=== PATIENT | male | born 1950 | race Caucasian/White ===

== ENCOUNTER 2021-09-19 20:38 | Emergency (ER) | payer MEDICARE ==
[~2021-09-19] VITALS: Ht 185.4 cm; Wt 102.1 kg
--- NOTE | 2021-09-19 20:50 | NUR ---
NO BEDS AVAILABLE, BIB RA. PATIENT WAITING OUTSIDE IN THE RA TRUCK DUE TO + COVID.
--- NOTE | 2021-09-19 21:45 | NUR ---
BED AVAILABLE IN ROOM 5A. PLACED PATIENT IN ROOM.
[2021-09-19 22:00] LABS: HEMATOCRIT 42.3 % (36.7-47.1); MEAN CORPUSCULAR VOLUME 92.4 fL (73.0-96.2); PLATELET COUNT (AUTO) 280 K/uL (152-348)
--- NOTE | 2021-09-19 23:20 | NUR ---
Pt in room 5A eating snacks he brought with him. Pts VSS, PE WNL. Pt has good color and appearance. No s/sx of distress present.
--- NOTE | 2021-09-19 23:45 | NUR ---
Pt in Room 5A being worked up for CP. Pt placed on monitor, VSS, PE WNL. Pt denies any dizziness, n/v, sob, or discomfort. No complaints of pain at this time. I suspect that the pt is not really having CP but just wanted to get out the cold weather for a bit, rest up and have something to eat. Pt is resting comfortably with audible snoring. No s/sx of CP or discomfort of any kind noted.
--- NOTE | 2021-09-20 00:05 | NUR ---
Pt has made a huge mess in room 5a. He has thrown food wrappers and banana peels all over the room and has spilled urine on the floor.
[2021-09-20] MEDS ORDERED: IV NORMAL SALINE 250 ML IV ONE (00:17)
[2021-09-20] MEDS ORDERED: SWABABLE VALVE TRANSFER SET EA MC ONE (00:17)
[2021-09-20] MEDS ORDERED: IOHEXOL 350 100 ML INFUS..BTL ONE (00:17)
[2021-09-20 00:39] LABS: BILIRUBIN,DIRECT 0.1 mg/dL (0.0-0.2); BILIRUBIN,TOTAL 0.5 mg/dL (0.2-1.0); CREATININE 0.9 mg/dL (0.6-1.3); POTASSIUM 4.4 mmol/L (3.5-5.1); TOTAL PROTEIN, SERUM 8.1 g/dL (6.4-8.2)
--- NOTE | 2021-09-20 04:50 | NUR ---
Pt was caught trying to steal a wheelchair and elope thru the emergency exit at the backside of ED between ED and Lab by the campus security officer. Pt was brought back into the ED and was told that if he wants to leave he has to sign out AMA and leave the WC. Pt complied and signed out AMA, the campus security officer then escorted pt out of the dept and made sure to bring back the wc. Pt had good color and appearance, VSS, no complaints of pain or discomfort or sob or nausea. No s/sx of distress present.
[2021-09-20 06:25] VITALS: BP 118/82
== END 2021-09-20 04:55 | disposition left against medical advice (07) ==
LOC: ER 20:46
DX: R07.9 Chest pain, unspecified (principal); F20.9 Schizophrenia, unspecified; Z86.16 Personal history of COVID-19; Z82.49 Family history of ischemic heart disease and other diseases of the circulatory system; R79.1 Abnormal coagulation profile; Z59.02 Unsheltered homelessness; F31.9 Bipolar disorder, unspecified; I25.2 Old myocardial infarction; Z53.29 Procedure and treatment not carried out because of patient's decision for other reasons
CPT/HCPCS: 36415; 71045; 71275; 80048; 80076; 83880; 84484; 85025; 85379; 93005; 99285; Q9967; 70030-TC; J7050